=== PATIENT | male | born 1965 | race Caucasian/White ===

== ENCOUNTER 2022-03-20 15:39 | Day surgery (SDC) | payer OTHER ==
[2022-03-20] MEDS ORDERED: LIDOCAINE HCL 2% 100 MG/5 ML IJ ONE (15:40)
[2022-03-20] MEDS ORDERED: Lactated Ringers 1,000 ML IV ONE (17:54)
[2022-03-20] MEDS ORDERED: DIPRIVAN 200 MG/20 ML IV ONE ×2 (18:04→18:09)
--- NOTE | 2022-03-20 19:51 | XRAY ---
Indication: Bilateral L4-S1 MBB. Intraoperative fluoroscopy provided for 8 seconds. Single digital spot image submitted for interpretation demonstrates posterior needle tips projecting over the expected left and right L4-S1 nerve roots. Correlate with intraoperative findings/report.
--- NOTE | 2022-03-21 09:20 | XRAY ---
8 seconds of fluoroscopy was used in surgery for a bilateral L4-S1 MBB.
== END 2022-03-20 18:30 | disposition home or self-care (01) ==
LOC: SDC-PAIN 15:39
PROVIDERS: ATTEND Psychiatry & Neurology Pain Medicine
DX: M47.816 Spondylosis without myelopathy or radiculopathy, lumbar region (principal); Z79.899 Other long term (current) drug therapy
CPT/HCPCS: 64493; 64494; 72020; 77002; J2704

== ENCOUNTER 2022-05-01 11:36 | Day surgery (SDC) | payer OTHER ==
[2022-05-01] MEDS ORDERED: Depo-Medrol 40 MG/ML IM ONE (11:37)
[2022-05-01] MEDS ORDERED: Marcaine Mpf 0.5% Vial 30 Ml IJ ONE (11:37)
[2022-05-01] MEDS ORDERED: XYLOCAINE-MPF 1% 5ML SDV IJ ONE (11:37)
[2022-05-01] MEDS ORDERED: Decadron 4 MG INJ IV ONE (11:37)
[2022-05-01] MEDS ORDERED: DIPRIVAN 200 MG/20 ML IV ONE (12:40)
[2022-05-01] MEDS ORDERED: Lactated Ringers 1,000 ML IV ONE (13:46)
--- NOTE | 2022-05-01 14:13 | XRAY ---
Indication: Left SI joint and left piriformis injection. Intraoperative fluoroscopy provided for 30 seconds. 3 digital spot image obtained prone submitted for interpretation demonstrates posterior needle tip projecting over the inferior left SI joint. Second needle tip projects over the left piriformis muscle with small amount of contrast injected for needle tip placement. Correlate with intraoperative findings/report.
--- NOTE | 2022-05-02 09:19 | XRAY ---
30 seconds fluoroscopy time in surgery for injections of the left SI joint and left oiriformis muscle.
== END 2022-05-01 13:05 | disposition home or self-care (01) ==
LOC: SDC-PAIN 11:36
PROVIDERS: ATTEND Psychiatry & Neurology Pain Medicine
DX: M46.1 Sacroiliitis, not elsewhere classified (principal); M79.18 Myalgia, other site; Z79.899 Other long term (current) drug therapy
CPT/HCPCS: 20552; 27096; 72170; 77002; G0260; J1030; J1100; J2704; Q9966

== ENCOUNTER 2022-06-05 12:28 | Day surgery (SDC) | payer OTHER ==
[2022-06-05] MEDS ORDERED: Marcaine Mpf 0.5% Vial 30 Ml IJ ONE (12:29)
[2022-06-05] MEDS ORDERED: Depo-Medrol 40 MG/ML IM ONE (12:29)
[2022-06-05] MEDS ORDERED: Lactated Ringers 1,000 ML IV ONE (14:30)
[2022-06-05] MEDS ORDERED: DIPRIVAN 200 MG/20 ML IV ONE ×2 (14:43→14:47)
--- NOTE | 2022-06-05 17:11 | XRAY ---
Indication: Bilateral L4-S1 MBB. Intraoperative fluoroscopy provided for 25 seconds. Single digital spot image submitted for interpretation demonstrates posterior needle tips projecting over the expected left and right L4-S1 nerve roots. Correlate with intraoperative findings/report.
--- NOTE | 2022-06-05 17:20 | XRAY ---
25 seconds fluoroscopy time in surgery for bilateral L4-S1 MBB.
== END 2022-06-05 15:10 | disposition home or self-care (01) ==
LOC: SDC-PAIN 12:28
PROVIDERS: ATTEND Psychiatry & Neurology Pain Medicine
DX: M47.816 Spondylosis without myelopathy or radiculopathy, lumbar region (principal); Z79.899 Other long term (current) drug therapy
CPT/HCPCS: 64493; 64494; 72020; 77002; J1030; J2704